=== PATIENT | female | born 1980 | race African-American/Black ===

== ENCOUNTER 2017-09-11 17:35 | Emergency (ER) | payer MEDICAID, OTHER ==
[~2017-09-11] VITALS: Ht 152.4 cm; Wt 72.0 kg
[~2017-09-11 17:35] MED LIST: CARI350T PO; HYDR-3971 PO
[2017-09-11] MEDS ORDERED: TOPI25 PO (18:10)
[2017-09-11 18:42] LABS: BASOPHILS % (AUTO) 0.3 % (0.0-2.0); EOSINOPHILS % (AUTO) 2.1 % (1.0-6.0); HEMATOCRIT 36.9 % (36-46); HEMOGLOBIN 12.1 g/dL (12.0-16.0); LYMPHOCYTES # (AUTO) 2.8 K/uL (1.0-4.8); LYMPHOCYTES % (AUTO) 19.1 % (22.0-44.0); MEAN CORPUSCULAR HEMOGLOBIN 26.8 pg (26.0-34.0); MEAN CORPUSCULAR HGB CONC 32.8 G/dL (31.0-37.0); MEAN CORPUSCULAR VOLUME 82 fL (80-100); MONOCYTES # (AUTO) 0.8 K/uL (0.1-1.0); MONOCYTES % (AUTO) 5.6 % (2.0-9.0); NEUTROPHILS # (AUTO) 10.7 K/uL (1.8-7.7); NEUTROPHILS % (AUTO) 72.9 % (40.0-70.0); RED BLOOD CELL COUNT(AUTO) 4.52 MIL/uL (4.00-5.20); RED CELL DISTRIBUTION WIDTH 14.8 % (11.5-14.5)
[2017-09-11] MEDS: TOPIRAMATE 25 MG TABLET PO ONE ×2 (18:52→18:59)
[2017-09-11] MEDS ORDERED: TOPIRAMATE 25 MG TABLET PO ONE (19:00)
[2017-09-11 19:08] LABS: ANION GAP 8 mmol/L (8-16); CALCIUM, TOTAL 9.3 mg/dL (8.8-10.5); CARBON DIOXIDE 27 mmol/L (22-29); CHLORIDE 100 mmol/L (98-107); GLOMERULAR FILTR. RATE CALC > 60 mL/min (>60); POTASSIUM 3.4 mmol/L (3.5-5.1); SODIUM SERUM 135 mmol/L (136-145); UREA NITROGEN, BLOOD 9 mg/dL (7-18)
[2017-09-11 19:13] VITALS: BP 120/67
[2017-09-11 19:14] LABS: ALANINE AMINOTRANSFERASE 20 U/L (12-78); ALBUMIN 3.7 g/dL (3.4-5.0); ASPARTATE AMINOTRANSFERASE 26 U/L (15-37); BILIRUBIN,TOTAL 0.3 mg/dL (0.1-1.0)
[2017-09-11 21:09] LABS: PLATELET COUNT (AUTO) 366 K/uL (150-450)
== END 2017-09-11 19:59 | disposition left against medical advice (07) ==
LOC: EMS 17:37
DX: R56.9 Unspecified convulsions (principal); F19.90 Other psychoactive substance use, unspecified, uncomplicated; Z88.8 Allergy status to other drugs, medicaments and biological substances
CPT/HCPCS: 93005; 99285